=== PATIENT | female | born 2005 | race Caucasian/White ===

== ENCOUNTER 2023-04-23 07:56 | Emergency (ER) | payer OTHER ==
[2023-04-23] MEDS ORDERED: Prochlorperazine 10 MG/2 ML SDV IVPUSH ONE (09:03)
[2023-04-23] MEDS ORDERED: diphenhydrAMINE 50 MG/ML SDV IVPUSH ONE (09:03)
== END 2023-04-23 10:45 | disposition home or self-care (01) ==
LOC: JP.ED 07:56
DX: R06.02 Shortness of breath (principal); R51.9 Headache, unspecified; R10.9 Unspecified abdominal pain
CPT/HCPCS: 36415; 70450; 71046; 84703; 96374; 96375; 99284; J0780; J1200